=== PATIENT | female | born 1950 | race Caucasian/White ===

== ENCOUNTER 2021-08-31 09:46 | Outpatient (CLI) | payer MEDICARE, MEDICAID | END 2021-08-31 09:47 | disposition home or self-care (01) | LOC: BICMAMMO 09:46 | PROVIDERS: ATTEND Family Medicine | DX: N63.13 Unspecified lump in the right breast, lower outer quadrant (principal); N63.24 Unspecified lump in the left breast, lower inner quadrant | CPT/HCPCS: 76642; 77066; G0279 ==

== ENCOUNTER → 2021-09-11 | Day surgery (SDC) | payer MEDICARE, MEDICAID | LOC: BICULT 13:04 | PROVIDERS: ATTEND Family Medicine | PROC: 0H9T3ZX Drainage of Right Breast, Percutaneous Approach, Diagnostic (ICD-10-PCS; principal; 2021-09-11) | DX: D24.1 Benign neoplasm of right breast (principal) | CPT/HCPCS: 19083; 88305 ==

== ENCOUNTER 2021-10-17 11:25 | Outpatient (CLI) | payer MEDICARE, MEDICAID ==
[2021-10-17 12:47] LABS: #Basophils 0.1 10x3/uL (0.0-0.2); #Eosinphils 0.1 10x3/uL (0.0-0.5); #Monocytes 0.4 10x3/uL (0.0-1.1); #Neutrophils 3.5 10x3/uL (1.5-8.4); %Basophils 0.9 % (0.0-2.0); %Monocytes 6.2 % (0.0-10.0); %Neutrophils 52.6 % (40.0-75.0); Hemoglobin 12.4 g/dL (12.0-15.5); Mean Corpuscular HGB CONC 31.1 g/dL (32.0-36.0); Mean Corpuscular Hemoglobin 28.4 pg (27.0-33.0); Mean Corpuscular Volume 91.3 fl (81.6-98.3); Mean Platelet Volume 8.9 fl (7.4-10.4); Platelet Count 299 10x3/uL (150-450); RBC Distribution Width 13.1 % (11.5-14.5); Red Blood Cell (RBC) Count 4.37 10x6/uL (3.90-5.03); White Blood Cell (WBC) Count 6.7 10x3/uL (3.5-10.5)
[2021-10-17 13:03] LABS: Anion Gap 13 mmol/L (10-20); BUN (Urea Nitrogen) 17 mg/dL (9.8-20.1); Calc. Creatinine Clearance 0 mL/min (70-130); Calcium 9.6 mg/dL (7.8-10.44); Carbon Dioxide 29 mmol/L (23-31); Chloride 104 mmol/L (98-107); Glucose 92 mg/dL (83-110); Potassium 4.3 mmol/L (3.5-5.1); Sodium 142 mmol/L (136-145)
[2021-10-18 00:41] LABS: SARS-CoV-2 PCR by NAA Not Detected (NotDetected)
== END 2021-10-17 11:26 | disposition home or self-care (01) ==
LOC: LABBT 11:25
PROVIDERS: ATTEND Surgery
DX: Z01.818 Encounter for other preprocedural examination (principal); Z20.822 Contact with and (suspected) exposure to COVID-19
CPT/HCPCS: 71046; 80048; 85025; 93005; U0003; U0005; 93010

== ENCOUNTER 2021-10-20 05:50 | Day surgery (SDC) | payer MEDICARE, MEDICAID ==
[2021-10-19 10:14] VITALS: BMI 40.2
[2021-10-20] MEDS ORDERED: ceFAZolin 2 GM/DEX 5% 100 ML BAG ONE (06:18)
[2021-10-20] MEDS ORDERED: Acetaminophen 500 MG TAB ONE (06:18)
[2021-10-20] MEDS ORDERED: Bupivacaine 0.25% 10 ML VIAL ONE (06:55)
[2021-10-20] MEDS ORDERED: Lidocaine 1% w/Epinephrine 1:100K 20 ML VIAL ONE (06:55)
[2021-10-20] MEDS ORDERED: Fentanyl 100 MCG/2 ML VIAL ONE (07:32)
[2021-10-20] MEDS ORDERED: ePHEDrine 50 MG/ML VIAL ONE (08:06)
[2021-10-20] MEDS ORDERED: Lidocaine 1% PF 5 ML VIAL ONE (08:06)
[2021-10-20] MEDS ORDERED: Glycopyrrolate 0.2 MG/ML 5 ML SYRINGE ONE (08:06)
[2021-10-20] MEDS ORDERED: Phenylephrine 10 MG/ML VIAL ONE (08:06)
[2021-10-20] MEDS ORDERED: PROPOFOL 200 MG/20 ML VIAL ONE (08:06)
[2021-10-20] MEDS ORDERED: Ondansetron PF 4 MG/2 ML Vial ONE (08:06)
== END 2021-10-20 12:09 | disposition home or self-care (01) ==
LOC: SDC 05:50
PROVIDERS: ATTEND Surgery
PROC: 0HBT0ZZ Excision of Right Breast, Open Approach (ICD-10-PCS; principal; 2021-10-20)
PROC: 0J980ZZ Drainage of Abdomen Subcutaneous Tissue and Fascia, Open Approach (ICD-10-PCS; 2021-10-20)
DX: C50.911 Malignant neoplasm of unspecified site of right female breast (principal); L02.211 Cutaneous abscess of abdominal wall; E11.9 Type 2 diabetes mellitus without complications; I10 Essential (primary) hypertension; E78.00 Pure hypercholesterolemia, unspecified; E66.9 Obesity, unspecified; Z68.41 Body mass index [BMI] 40.0-44.9, adult; Z87.891 Personal history of nicotine dependence; Z79.82 Long term (current) use of aspirin; Z79.84 Long term (current) use of oral hypoglycemic drugs; Z79.899 Other long term (current) drug therapy; Z88.8 Allergy status to other drugs, medicaments and biological substances; Z91.041 Radiographic dye allergy status; Z90.49 Acquired absence of other specified parts of digestive tract
CPT/HCPCS: 76098; 87070; 87077; 87186; 87205; J3010; S0020

== ENCOUNTER 2021-10-21 11:31 | Inpatient (IN) | payer MEDICARE, MEDICAID ==
[~2021-10-21 11:31] MED LIST: Iopamidol 370 76% 50 ML VIAL FS ONE
[2021-10-21 12:27] LABS: #Basophils 0.1 thou/uL (0.0-0.2); #Eosinphils 0.2 thou/uL (0.0-0.7); #Lymphocytes 1.8 thou/uL (1.20-3.40); #Monocytes 0.5 thou/uL (0.11-0.59); #Neutrophils 4.9 thou/uL (1.40-6.50); %Basophils 0.7 % (0.0-1.0); %Eosinophils 2.5 % (0.0-10.0); %Monocytes 6.1 % (0.0-10.0); %Neutrophils 66.7 % (42.0-75.0); Hemoglobin 12.7 g/dL (12.0-16.0); Mean Corpuscular HGB CONC 31.5 g/dL (32.0-36.0); Mean Corpuscular Hemoglobin 29.2 pg (27.0-31.0); Mean Corpuscular Volume 92.6 fL (78.0-98.0); Mean Platelet Volume 6.5 fL (7.4-10.4); Platelet Count 296 thou/uL (130-400); RBC Distribution Width 11.9 % (11.5-14.5); Red Blood Cell (RBC) Count 4.34 mill/uL (4.20-5.40); White Blood Cell (WBC) Count 7.4 thou/uL (4.8-10.8)
[2021-10-21 12:43] LABS: ALT (SGPT) 10 U/L (8-55); AST (SGOT) 13 U/L (5-34); Albumin 3.9 g/dL (3.4-4.8); Alkaline Phosphatase 71 U/L (40-110); Anion Gap 13 mmol/L (10-20); BUN (Urea Nitrogen) 12 mg/dL (9.8-20.1); Bilirubin, Total 1.5 mg/dL (0.2-1.2); Calc. Creatinine Clearance 0 mL/min (70-130); Calcium 9.5 mg/dL (7.8-10.44); Carbon Dioxide 26 mmol/L (23-31); Chloride 101 mmol/L (98-107); Globulin 3.8 g/dL (2.4-3.5); Glucose 111 mg/dL (83-110); Lipase 17 U/L (8-78); Potassium 4.4 mmol/L (3.5-5.1); Protein, Total 7.7 g/dL (5.8-8.1); Sodium 136 mmol/L (136-145)
[2021-10-21 16:00] LABS: Bacteria/HPF None Seen HPF (None Seen); Bilirubin Negative (Negative); Blood, Urine 2+ (Negative); Clarity Clear (Clear); Glucose, Urine (Dipstick) Normal (Negative); Ketone, Urine Negative (Negative); Leukocyte 75 Leu/uL (Negative); Nitrite Negative (Negative); Protein, Urine (Dipstick) Negative (Neg-Trace); RBC/HPF 0-3 HPF (0-3); Specific Gravity, Urine 1.003 (1.002-1.036); Squamous Epithelial 0-3 HPF (0-3); Urobilinogen Normal mg/dL (Less than 2); WBC/HPF 0-3 HPF (0-3); pH, Urine 6.5 (5.0-9.0)
[2021-10-21] MEDS ORDERED: Acetaminophen 325 MG TAB PO PRN (16:27)
[2021-10-21] MEDS ORDERED: Ondansetron PF 4 MG/2 ML Vial IVP PRN (16:27)
[2021-10-21] MEDS ORDERED: Dextrose 5% in Water 1,000 ML IV PRN (16:27)
[2021-10-21] MEDS ORDERED: Promethazine HCl 25 MG/ML VIAL IM PRN (16:27)
[2021-10-21] MEDS ORDERED: Calcium Carbonate 500 MG ChewTAB PO PRN (16:27)
[2021-10-21] MEDS ORDERED: HumaLOG 300 UNITS/3 ML VIAL SC PRN (16:27)
[2021-10-21] MEDS ORDERED: Mag-Al 1200 mg/1200 mg/30 ML UDCUP PO PRN (16:27)
[2021-10-21] MEDS ORDERED: hydrALAZINE 20 MG/ML VIAL SLOW IVP PRN (16:27)
[2021-10-21] MEDS ORDERED: Morphine 2 MG/ML VIAL SLOW IVP PRN (16:27)
[2021-10-21] MEDS ORDERED: Dextrose 50% Abboject 50 ML SYRINGE SLOW IVP PRN (16:27)
[2021-10-21] MEDS ORDERED: traMADol HCl 50 MG TAB PO PRN (16:29)
[2021-10-21] MEDS ORDERED: Loperamide HCl 2 MG CAP PO PRN (16:49)
[2021-10-21 19:13] VITALS: BMI 41.3
[2021-10-21] MEDS: metFORMIN 500 MG TAB PO SCH (20:44)
[2021-10-21] MEDS: Famotidine 20 MG TAB PO SCH (20:44)
[2021-10-21] MEDS: Carvedilol 25 MG TAB PO SCH (20:44)
[2021-10-21] MEDS: D5 1/2 NS w/20 mEq KCL 1,000 ML IV SCH (20:45)
[2021-10-22] MEDS: D5 1/2 NS w/20 mEq KCL 1,000 ML IV SCH ×3 (03:37→16:49)
[2021-10-22 06:20] LABS: #Eosinphils 0.2 thou/uL (0.0-0.7); #Lymphocytes 2.5 thou/uL (1.20-3.40); #Monocytes 0.4 thou/uL (0.11-0.59); #Neutrophils 3.5 thou/uL (1.40-6.50); %Basophils 0.2 % (0.0-1.0); %Eosinophils 3.3 % (0.0-10.0); %Lymphocytes 37.2 % (21.0-51.0); %Monocytes 6.4 % (0.0-10.0); %Neutrophils 52.9 % (42.0-75.0); Hemoglobin 12.3 g/dL (12.0-16.0); Mean Corpuscular HGB CONC 32.2 g/dL (32.0-36.0); Mean Corpuscular Hemoglobin 30.2 pg (27.0-31.0); Mean Corpuscular Volume 93.6 fL (78.0-98.0); Mean Platelet Volume 6.3 fL (7.4-10.4); Platelet Count 272 thou/uL (130-400); RBC Distribution Width 11.9 % (11.5-14.5); Red Blood Cell (RBC) Count 4.08 mill/uL (4.20-5.40); White Blood Cell (WBC) Count 6.6 thou/uL (4.8-10.8)
[2021-10-22 06:38] LABS: ALT (SGPT) 11 U/L (8-55); AST (SGOT) 10 U/L (5-34); Albumin 3.7 g/dL (3.4-4.8); Alkaline Phosphatase 65 U/L (40-110); Anion Gap 9 mmol/L (10-20); BUN (Urea Nitrogen) 9 mg/dL (9.8-20.1); Bilirubin, Total 1.3 mg/dL (0.2-1.2); Calc. Creatinine Clearance 104 mL/min (70-130); Calcium 9.6 mg/dL (7.8-10.44); Carbon Dioxide 30 mmol/L (23-31); Chloride 104 mmol/L (98-107); Globulin 3.4 g/dL (2.4-3.5); Glucose 115 mg/dL (83-110); Protein, Total 7.1 g/dL (5.8-8.1); Sodium 139 mmol/L (136-145)
[2021-10-22] MEDS: Losartan 25 MG TAB PO SCH (08:32)
[2021-10-22] MEDS: metFORMIN 500 MG TAB PO SCH ×2 (08:33→20:38)
[2021-10-22] MEDS: Famotidine 20 MG TAB PO SCH ×2 (08:33→20:38)
[2021-10-22] MEDS: Carvedilol 25 MG TAB PO SCH ×2 (08:33→20:38)
[2021-10-22] MEDS: Amlodipine 5 MG TAB PO SCH (08:33)
[2021-10-22] MEDS: Enoxaparin Sodium 40 MG/0.4 ML SYRINGE SC SCH (08:35)
[2021-10-23] MEDS: D5 1/2 NS w/20 mEq KCL 1,000 ML IV SCH ×3 (06:54→20:05)
[2021-10-23] MEDS: Carvedilol 25 MG TAB PO SCH ×2 (08:28→21:02)
[2021-10-23] MEDS: Famotidine 20 MG TAB PO SCH ×2 (08:28→21:02)
[2021-10-23] MEDS: Amlodipine 5 MG TAB PO SCH (08:30)
[2021-10-23] MEDS: Enoxaparin Sodium 40 MG/0.4 ML SYRINGE SC SCH (08:31)
[2021-10-23] MEDS: Losartan 25 MG TAB PO SCH (08:31)
[2021-10-23] MEDS: metFORMIN 500 MG TAB PO SCH ×2 (08:31→21:02)
[2021-10-23] MEDS ORDERED: Fentanyl 100 MCG/2 ML VIAL ONE (14:11)
[2021-10-23] MEDS ORDERED: PROPOFOL 200 MG/20 ML VIAL ONE (14:39)
[2021-10-23] MEDS ORDERED: Ondansetron PF 4 MG/2 ML Vial ONE (14:39)
[2021-10-23] MEDS ORDERED: Dexamethasone 20 MG/5 ML VIAL ONE (14:39)
[2021-10-23] MEDS ORDERED: Ketorolac Tromethamine 30 MG/ML VIAL ONE (14:39)
[2021-10-23] MEDS ORDERED: Lidocaine 1% PF 5 ML VIAL ONE (14:39)
[2021-10-23] MEDS ORDERED: Rocuronium Bromide 10 MG/ML (10ML VIAL) ONE (14:39)
[2021-10-23] MEDS ORDERED: cefOXitin Sodium/Dextrose 2 GM/50 ML BAG ONE (14:57)
[2021-10-23] MEDS ORDERED: hydrALAZINE 20 MG/ML VIAL ONE (17:29)
[2021-10-23] MEDS ORDERED: HYDROcodone/Acetaminophen 5/325 mg Tablet PO PRN (17:30)
[2021-10-23] MEDS ORDERED: hydrALAZINE 20 MG/ML VIAL SLOW IVP PRN (17:42)
[2021-10-23] MEDS ORDERED: Ondansetron HCl/PF 4 MG/2 ML Vial IVP PRN (17:45)
[2021-10-23] MEDS ORDERED: PACU-Morphine 4MG/ML VIAL SLOW IVP PRN (17:45)
[2021-10-23] MEDS ORDERED: Promethazine HCl 25 MG/ML VIAL IM PRN (17:45)
[2021-10-23] MEDS ORDERED: Promethazine HCl 25 MG/ML VIAL IVPB PRN (17:45)
[2021-10-24] MEDS: D5 1/2 NS w/20 mEq KCL 1,000 ML IV SCH (04:03)
[2021-10-24] MEDS: Enoxaparin Sodium 40 MG/0.4 ML SYRINGE SC SCH ×2 (10:39→14:52)
[2021-10-24] MEDS: Famotidine 20 MG TAB PO SCH (10:40)
[2021-10-24] MEDS: Carvedilol 25 MG TAB PO SCH (10:40)
[2021-10-24] MEDS: metFORMIN 500 MG TAB PO SCH (10:40)
[2021-10-24] MEDS: Losartan 25 MG TAB PO SCH (10:41)
[2021-10-24] MEDS: Amlodipine 5 MG TAB PO SCH (10:41)
[2021-10-24 16:14] VITALS: BP 161/67; TEMP 98.7
== END 2021-10-24 17:35 | disposition home or self-care (01) | DRG 908 ==
LOC: ERS 11:31 → SURG A 16:28
PROVIDERS: ADMIT Surgery; ATTEND Surgery
PROC: 0DBB0ZZ Excision of Ileum, Open Approach (ICD-10-PCS; principal; 2021-10-23)
PROC: 0DNW0ZZ Release Peritoneum, Open Approach (ICD-10-PCS; 2021-10-23)
DX: T81.83XA Persistent postprocedural fistula, initial encounter (principal); K63.2 Fistula of intestine; Z68.41 Body mass index [BMI] 40.0-44.9, adult; E78.5 Hyperlipidemia, unspecified; K66.0 Peritoneal adhesions (postprocedural) (postinfection); I10 Essential (primary) hypertension; E11.9 Type 2 diabetes mellitus without complications; E66.9 Obesity, unspecified; Z90.710 Acquired absence of both cervix and uterus; Z88.8 Allergy status to other drugs, medicaments and biological substances; Z91.041 Radiographic dye allergy status; Z85.038 Personal history of other malignant neoplasm of large intestine; Z85.41 Personal history of malignant neoplasm of cervix uteri; Z90.49 Acquired absence of other specified parts of digestive tract; Z93.3 Colostomy status
CPT/HCPCS: 36415; 36416; 74176; 76098; 80053; 81003; 81015; 83605; 83690; 85025; 87070; 87077; 87086; 87186; 87205; 88305; 88307; 88325; C1776; J0360; J0694; J1100; J1650; J1885; J2370; J2405; J2704; J3010; J3480; J3490; Q9967; S0020

== ENCOUNTER 2022-01-05 07:09 | Day surgery (SDC) | payer MEDICARE, MEDICAID ==
[2022-01-03 11:36] VITALS: BMI 39.3
[2022-01-05] MEDS ORDERED: Fentanyl 250 MCG/5 ML VIAL ONE (09:47)
[2022-01-05] MEDS ORDERED: Methylene Blue 50 MG/10 ML AMPUL ONE (09:55)
[2022-01-05] MEDS ORDERED: Bupivacaine 0.25% HCL 30 ML VIAL ONE (09:55)
[2022-01-05] MEDS ORDERED: Xylocaine 1% w/ Epi 1:100K 10 ML VIAL ONE (09:55)
[2022-01-05] MEDS ORDERED: Acetaminophen 500 MG TAB ONE (09:59)
[2022-01-05] MEDS ORDERED: Isosulfan Blue 50 MG/5 ML VIAL ONE (10:06)
[2022-01-05] MEDS ORDERED: ceFAZolin 2 GM/Dextrose 50 ML IVPB ONE (10:13)
[2022-01-05] MEDS ORDERED: Lidocaine 1% PF 5 ML VIAL ONE (10:27)
[2022-01-05] MEDS ORDERED: Rocuronium Bromide 10 MG/ML (10ML VIAL) ONE (10:27)
[2022-01-05] MEDS ORDERED: ePHEDrine 50 MG/ML VIAL ONE (10:27)
[2022-01-05] MEDS ORDERED: Dexamethasone 20 MG/5 ML VIAL ONE (10:27)
[2022-01-05] MEDS ORDERED: Ondansetron PF 4 MG/2 ML Vial ONE (10:27)
[2022-01-05] MEDS ORDERED: PROPOFOL 200 MG/20 ML VIAL ONE (10:27)
[2022-01-05] MEDS ORDERED: PHENYLEPHRINE-NS 100 MCG/ML 10 ML SYRINGE ONE (10:27)
== END 2022-01-05 14:15 | disposition home or self-care (01) ==
LOC: SDC 07:09
PROVIDERS: ATTEND Surgery
PROC: 0HBT0ZZ Excision of Right Breast, Open Approach (ICD-10-PCS; principal; 2022-01-05)
PROC: 07B50ZX Excision of Right Axillary Lymphatic, Open Approach, Diagnostic (ICD-10-PCS; 2022-01-05)
DX: C50.811 Malignant neoplasm of overlapping sites of right female breast (principal); E78.00 Pure hypercholesterolemia, unspecified; E11.9 Type 2 diabetes mellitus without complications; I10 Essential (primary) hypertension; Z17.0 Estrogen receptor positive status [ER+]; Z85.038 Personal history of other malignant neoplasm of large intestine; Z87.891 Personal history of nicotine dependence; Z79.84 Long term (current) use of oral hypoglycemic drugs; Z79.899 Other long term (current) drug therapy; Z88.8 Allergy status to other drugs, medicaments and biological substances; Z91.041 Radiographic dye allergy status; Z90.49 Acquired absence of other specified parts of digestive tract
CPT/HCPCS: 19301; 38525; 38900; 78195; A9541; C1776; Q9968 ×2; 88305; 88307; 88342; J0690; J1100; J2405; J2704; J3010; J3490; S0020

== ENCOUNTER 2022-03-13 13:13 | Outpatient (CLI) | payer MEDICARE, OTHER | END 2022-03-13 13:14 | disposition home or self-care (01) | LOC: BICULT 13:13 | PROVIDERS: ATTEND Urology | DX: R31.29 Other microscopic hematuria (principal); N39.0 Urinary tract infection, site not specified | CPT/HCPCS: 76770 ==

== ENCOUNTER 2022-08-31 11:52 | Outpatient (CLI) | payer OTHER, MEDICAID | END 2022-08-31 11:53 | disposition home or self-care (01) | LOC: CT 11:52 | PROVIDERS: ATTEND Surgery | DX: S31.109D Unspecified open wound of abdominal wall, unspecified quadrant without penetration into peritoneal cavity, subsequent encounter (principal); K63.2 Fistula of intestine; K63.89 Other specified diseases of intestine; N13.30 Unspecified hydronephrosis; K80.50 Calculus of bile duct without cholangitis or cholecystitis without obstruction | CPT/HCPCS: 74176 ==

== ENCOUNTER 2023-03-20 14:21 | Outpatient (CLI) | payer OTHER, MEDICAID | END 2023-03-20 14:22 | disposition home or self-care (01) | LOC: BICMAMMO 14:21 | PROVIDERS: ATTEND Internal Medicine Hematology & Oncology | DX: Z13.820 Encounter for screening for osteoporosis (principal); T38.6X5A Adverse effect of antigonadotrophins, antiestrogens, antiandrogens, not elsewhere classified, initial encounter; M85.89 Other specified disorders of bone density and structure, multiple sites | CPT/HCPCS: 77080 ==

== ENCOUNTER 2023-10-22 13:13 | Outpatient (CLI) | payer OTHER, MEDICAID | END 2023-10-22 13:14 | disposition home or self-care (01) | LOC: BICMAMMO 13:13 | PROVIDERS: ATTEND Specialist | DX: Z08 Encounter for follow-up examination after completed treatment for malignant neoplasm (principal); Z85.3 Personal history of malignant neoplasm of breast | CPT/HCPCS: 77066; G0279 ==

== ENCOUNTER 2023-10-22 14:03 | Outpatient (CLI) | payer OTHER, MEDICAID | END 2023-10-22 14:04 | disposition home or self-care (01) | LOC: BICRAD 14:03 | PROVIDERS: ATTEND Student in an Organized Health Care Education/Training Program | DX: M25.561 Pain in right knee (principal); M79.671 Pain in right foot; M17.0 Bilateral primary osteoarthritis of knee; S82.431A Displaced oblique fracture of shaft of right fibula, initial encounter for closed fracture | CPT/HCPCS: 73565 ==

== ENCOUNTER 2024-05-15 13:51 | Outpatient (CLI) | payer OTHER | END 2024-05-15 13:52 | disposition home or self-care (01) | LOC: BICMAMMO 13:51 | PROVIDERS: ATTEND Internal Medicine Hematology & Oncology | DX: Z13.820 Encounter for screening for osteoporosis (principal); C50.811 Malignant neoplasm of overlapping sites of right female breast; M85.851 Other specified disorders of bone density and structure, right thigh; M85.852 Other specified disorders of bone density and structure, left thigh | CPT/HCPCS: 77080 ==

== ENCOUNTER 2024-11-17 12:51 | Outpatient (CLI) | payer OTHER | END 2024-11-17 12:52 | disposition home or self-care (01) | LOC: BICMAMMO 12:51 | PROVIDERS: ATTEND Specialist | DX: Z12.31 Encounter for screening mammogram for malignant neoplasm of breast (principal); Z80.3 Family history of malignant neoplasm of breast; Z85.3 Personal history of malignant neoplasm of breast; Z85.41 Personal history of malignant neoplasm of cervix uteri; Z85.038 Personal history of other malignant neoplasm of large intestine; Z98.890 Other specified postprocedural states | CPT/HCPCS: 77063; 77067 ==